=== PATIENT | female | born 1980 | race Two or more races ===

== ENCOUNTER 2022-03-11 13:42 | Emergency (ER) | payer OTHER ==
[~2022-03-11] VITALS: Ht 165.1 cm; Wt 90.7 kg
[2022-03-11] MEDS ORDERED: ZESTRIL2.5 MG PO (14:05)
[2022-03-11] MEDS ORDERED: VISTARIL25 MG PO (14:05)
[2022-03-11] MEDS ORDERED: ECOTRIN81 MG PO (14:06)
== END 2022-03-11 15:59 | disposition home or self-care (01) ==
LOC: ER 13:42
DX: R20.0 Anesthesia of skin (principal); J45.909 Unspecified asthma, uncomplicated